=== PATIENT | female | born 1975 | race Caucasian/White ===

== ENCOUNTER → 2019-03-04 14:42 | Outpatient (CLI) | payer OTHER, SELFPAY ==
--- NOTE | 2019-03-04 14:43 | US_ITS ---
PROCEDURE: US TRANSVAGINAL CLINICAL INDICATION: dub COMPARISON: No exams were available for comparison FINDINGS: Uterus measures 6.3 x 3.4 x 3.9 centimeters. Uterus is anteverted or anteflexed. Endometrial stripe is 4.0 millimeters. Right ovary is 5.0 x 2.3 x 4.2 centimeters and contains a few anechoic foci with smooth guajardo and distal acoustic enhancement, largest is 3.3 centimeters. There is blood flow to the right ovary. Left ovary has been surgically removed. IMPRESSION: Benign-appearing prominent right ovarian cysts. Dictated by: Geraldo Stafford 03/04/2019 16:48 Electronically signed by Geraldo Stafford in [facility] 03/04/2019 16:48
--- NOTE | 2019-03-04 14:43 | MM_ITS ---
PROCEDURE: MM DIG SCREENING MAMM BI W/CAD Patient Age:43Y CLINICAL INDICATION: baseline routine screening mammogram. No hormones but no new complaints but Previous cyst aspiration and needle biopsy/breasts benign. COMPARISON: No exams were available for comparison TECHNIQUE: Standard CC and MLO images were obtained. R2 CAD reviewed. Additional nipple profile CC view right breast and left breast FINDINGS: This is a baseline study with no previous for comparison. Of minimal fibroglandular elements of throughout the breast, most evident retroareolar region no dominant or suspicious appearing mass. IMPRESSION: No areas of significant concern on this baseline mammogram . Bilateral follow-up 1 year recommended BI-RAD Category: 1 Negative FOLLOW-UP: 1YR 1 Year Follow-up (A letter has been sent to the patient regarding results of the study.) Dictated by: Quan Blair MD 03/08/2019 17:48 Electronically signed by Quan Blair MD in [facility] 03/08/2019 17:48
== END ==
PROVIDERS: PCP Family Medicine; Visit Provider Obstetrics & Gynecology
DX: Z12.31 Encounter for screening mammogram for malignant neoplasm of breast (principal); N93.8 Other specified abnormal uterine and vaginal bleeding
CPT/HCPCS: 76830; 77067

== ENCOUNTER → 2019-04-06 12:46 | Outpatient (CLI) | payer OTHER, SELFPAY ==
--- NOTE | 2019-04-06 12:47 | US_ITS ---
PROCEDURE: US TRANSVAGINAL CLINICAL INDICATION: pelvic pain Follow-up right ovarian cyst COMPARISON: US TRANSVAGINAL from 03/04/2019 FINDINGS: UTERUS: The 8 x 4 x 4 cm. Combined endometrial thickness is 4 mm. There is some fluid present in the endocervical canal. The right ovary is 5 x 3.7 cm and contains a 3.3 cm cyst. Previously this cyst was a bilobular and measured 3.4 x 3 cm with a 2nd component at 2 cm. The current lead there is a small septation along the left aspect of the cyst. The left ovary has been removed. No cul-de-sac fluid evident. IMPRESSION: 1. There is a small amount fluid in the endocervical canal. 2. Right ovarian cyst is once again noted and is not significantly changed. A 2nd right ovarian cyst previously noted is no longer apparent. Suggest continued follow-up to confirm resolution or stability Dictated by: Deric Elaine MD 04/06/2019 18:04 Electronically signed by Deric Elaine MD in [facility] 04/06/2019 18:05
== END ==
PROVIDERS: PCP Family Medicine; Visit Provider Obstetrics & Gynecology
DX: R10.2 Pelvic and perineal pain (principal)
CPT/HCPCS: 76830

== ENCOUNTER → 2019-04-12 16:19 | Outpatient (CLI) | payer OTHER, SELFPAY ==
[2019-04-14 12:20] LABS: Cancer Antigen (CA) 125 11.8 U/mL (0.0-38.1)
== END ==
PROVIDERS: Visit Provider Obstetrics & Gynecology
DX: N83.8 Other noninflammatory disorders of ovary, fallopian tube and broad ligament (principal)
CPT/HCPCS: 36415; 86316

== ENCOUNTER → 2019-05-13 16:28 | Outpatient (CLI) | payer OTHER, SELFPAY ==
[2019-05-13 16:31] LABS: Microscopic, Urine URINE MICROSCOPIC (MICROSCOPIC)
[2019-05-13 17:12] LABS: Basophils # 0.1 K/mm3 (0-0.2); Basophils % 0.5 % (0.1-2.0); Eosinophils # 0.2 K/mm3 (0.0-0.4); Eosinophils % 1.8 % (0.1-12.0); Hematocrit 43.8 % (37.0-47.0); Hemoglobin 14.2 g/dL (12.2-16.2); Lymphocytes # 3.5 K/mm3 (0.7-4.5); Lymphocytes % 31.9 % (10-50); Mean Corpuscular HGB Conc 32.5 g/dL (31.8-35.4); Mean Corpuscular Hemoglobin 29.5 pg (27.0-31.2); Mean Corpuscular Volume 90.8 fl (81-99); Mean Platelet Volume 8.3 fl (7.4-10.4); Monocytes # 0.4 K/mm3 (0.1-1.0); Monocytes % 3.9 % (1.7-9.3); Neutrophils # 6.8 K/mm3 (1.8-7.8); Platelet Count 410 K/mm3 (142-424); Red Blood Count 4.82 M/mm3 (4.20-5.40); Red Cell Distribution Width 13.1 % (11.5-17.5); White Blood Count 10.9 K/mm3 (4.8-10.8)
[2019-05-13 17:16] LABS: Appearance,Urine CLEAR (Clear); Bilirubin,Urine Negative (Negative); Blood, Urine 1+ (Negative); Color,Urine YELLOW (Yellow); Glucose,Urine (UA) Negative (Negative); Ketones,Urine Negative (Negative); Leukocyte Esterase,Urine Negative (Negative); Nitrate,Urine Negative (Negative); PH,Urine 5.5 (5.0-8.5); Protein,Urine Negative (Negative); Urobilinogen,Urine 0.2 EU/dl (0.2)
[2019-05-13 17:30] LABS: Urine Pregnancy, HCG Qual. Negative (Negative)
[2019-05-13 17:34] LABS: Bacteria,Urine Trace /lpf; Squamous Epithelial Cell,Urine Occasional #/hpf (0-5); WBC,Urine Occasional #/hpf (0-3)
[2019-05-13 21:23] LABS: Alanine Aminotransferase 24 U/L (12-78); Albumin Level 3.5 gm/dL (3.4-5.0); Albumin/Globulin Ratio 1.1 (1.1-1.8); Alkaline Phosphatase 77 U/L (46-116); Anion Gap 14.4 mEq/L (5-15); Aspartate Amino Transferase 14 U/L (15-37); Bilirubin,Total 0.5 mg/dL (0.2-1.0); Blood Urea Nitrogen 12 mg/dL (7-18); Calcium 8.9 mg/dL (8.5-10.1); Carbon Dioxide 29 mmol/L (21.0-32.0); Chloride 102 mmol/L (98-107); Creatinine,Serum 0.91 mg/dL (0.55-1.02); Estimated Glomerular Filt Rate 68 ml/min (>60); GFR (African American) 82 ML/MIN (>60); Globulin 3.3 gm/dl (1.3-3.2); Glucose 80 mg/dL (74-106); Potassium 4.4 mmoL/L (3.5-5.1); Sodium 141 mmol/L (136-145); Total Protein,Serum 6.8 gm/dL (6.4-8.2)
== END ==
PROVIDERS: Visit Provider Obstetrics & Gynecology
DX: Z01.818 Encounter for other preprocedural examination (principal); N83.201 Unspecified ovarian cyst, right side
CPT/HCPCS: 36415; 80053; 81001; 81025; 85025

== ENCOUNTER → 2020-02-02 08:23 | Outpatient (CLI) | payer OTHER, SELFPAY ==
--- NOTE | 2020-02-02 08:43 | US_ITS ---
PROCEDURE: US ABDOMEN LIMITED CLINICAL INDICATION: ABD PAIN,REFLUX COMPARISON: CT [facility] CT CHEST W/O CONTRAST from 08/22/2016 FINDINGS: PANCREAS: Unremarkable. No obvious mass or abnormal fluid collection. No ductal dilatation LIVER: No focal liver lesions demonstrated. Homogeneous echogenicity. No intrahepatic biliary ductal dilatation evident. There is appropriate direction of blood flow within a non dilated portal vein RIGHT KIDNEY: Unremarkable. Normal size and echogenicity. There is minimal ectasia of the right renal collecting system. GALLBLADDER: No gallstones, gallbladder wall thickening, pericholecystic fluid, or biliary dilatation. IMPRESSION: Minimal ectasia of the right renal collecting system otherwise negative right upper quadrant ultrasound. Dictated by: Deric Elaine MD 02/02/2020 18:04 Deric Elaine MD in [facility] 02/02/2020 18:04
== END ==
LOC: RAD 08:23
PROVIDERS: PCP Family Medicine; Visit Provider Nurse Practitioner Family
DX: R10.11 Right upper quadrant pain (principal); K21.9 Gastro-esophageal reflux disease without esophagitis
CPT/HCPCS: 76705

== ENCOUNTER → 2020-02-16 10:16 | Outpatient (CLI) | payer OTHER, SELFPAY ==
--- NOTE | 2020-02-16 10:22 | NM_ITS ---
PROCEDURE: NM HEPATOBILIARY W PHARM CLINICAL INDICATION: RUQ PAIN COMPARISON: No exams were available for comparison TECHNIQUE: DOSE: 8.2 mCi technetium Choletec and 2.5 mcg of CCK FINDINGS: Homogeneous activity is present within the hepatic parenchyma. Activity is present in the gallbladder by 10 minutes. Activity is present in the small bowel by 10 minutes. The gallbladder ejection fraction is calculated to be 15 percent. Mild pain was reported with CCK infusion.. IMPRESSION: 1. No evidence of common or cystic duct obstruction with normal times a visualization of the gallbladder and small bowel. 2. Low gallbladder ejection fraction of 15 percent. There was some pain reported with CCK infusion. Gallbladder dyskinesia is a consideration. Please correlate with clinical findings Dictated by: Deric Elaine MD 02/17/2020 11:09 Deric Elaine MD in [facility] 02/17/2020 11:09
--- NOTE | 2020-02-16 10:38 | HMH.ITSHM ---
Current Home Medications as stated by this patient Treva Lynch or community representative. []STOMACH MEDS
== END ==
LOC: RAD 10:17
PROVIDERS: PCP Family Medicine; Visit Provider Nurse Practitioner Family
DX: R10.11 Right upper quadrant pain (principal)
CPT/HCPCS: 78227; A9537; J2805

== ENCOUNTER → 2020-03-06 08:19 | Outpatient (CLI) | payer OTHER, SELFPAY ==
[2020-03-06 08:34] LABS: Basophils # 0.1 K/mm3 (0-0.2); Basophils % 0.9 % (0.1-2.0); Eosinophils # 0.2 K/mm3 (0.0-0.4); Eosinophils % 2.8 % (0.1-12.0); Hematocrit 41.7 % (37.0-47.0); Hemoglobin 14.2 g/dL (12.2-16.2); Lymphocytes # 2.8 K/mm3 (0.7-4.5); Lymphocytes % 32.2 % (10-50); Mean Corpuscular Hemoglobin 30.4 pg (27.0-31.2); Mean Corpuscular Volume 89.3 fl (81-99); Mean Platelet Volume 8.4 fl (7.4-10.4); Monocytes # 0.3 K/mm3 (0.1-1.0); Monocytes % 3.4 % (1.7-9.3); Neutrophils # 5.3 K/mm3 (1.8-7.8); Neutrophils % 60.7 % (37.0-80.0); Platelet Count 366 K/mm3 (142-424); Red Blood Count 4.67 M/mm3 (4.20-5.40); Red Cell Distribution Width 13.2 % (11.5-17.5); White Blood Count 8.7 K/mm3 (4.8-10.8)
[2020-03-06 09:23] LABS: Chloride 100 mmol/L (98-107); Potassium 3.9 mmoL/L (3.5-5.1); Sodium 136 mmol/L (136-145)
[2020-03-06 09:26] LABS: Alanine Aminotransferase 20 U/L (12-78); Albumin Level 3.9 g/dl (3.5-5.0); Albumin/Globulin Ratio 1.5 (1.1-1.8); Alkaline Phosphatase 81 U/L (38-126); Anion Gap 11.9 mEq/L (5-15); Aspartate Amino Transferase 26 U/L (14-36); Blood Urea Nitrogen 8 mg/dl (7-17); Carbon Dioxide 28 mmol/L (22.0-30.0); Estimated Glomerular Filt Rate 68 ml/min (>60); GFR (African American) 83 ML/MIN (>60); Globulin 2.6 g/dL (1.3-3.2); Total Protein,Serum 6.5 g/dl (6.3-8.2)
[2020-03-06 09:27] LABS: Calcium 9.2 mg/dl (8.4-10.2); Glucose 103 mg/dl (74-100)
[2020-03-06 10:14] LABS: Coronavirus 19 IgG Antibody Negative (Negative); Coronavirus 19 IgM Antibody Negative (Negative)
== END ==
PROVIDERS: Visit Provider Surgery
DX: Z01.89 Encounter for other specified special examinations (principal); K82.8 Other specified diseases of gallbladder
CPT/HCPCS: 36415; 80053; 85025; 86328

== ENCOUNTER 2020-03-07 09:12 | Day surgery (SDC) | payer OTHER, SELFPAY ==
[2020-03-06 14:16] VITALS: BMI 46.5
[2020-03-07] VITALS (14 sets, daily range): BP systolic 124–194; BP diastolic 77–99; PULSE 65–102; RESP 12–19; TEMP 35.9–36.6; O2SAT 93–99
[2020-03-07 09:35] LABS: Urine Pregnancy, HCG Qual. Negative (Negative)
--- NOTE | 2020-03-07 10:05 | P.PN_ITS ---
[facility] Anesthesia Checklist - Patient Identification Patient Identification: Arm Band, Verbal (Name & ) - Structural Data Admitted From: Home Planned Operative Procedure/s: Laparoscopic cholecystectomy Consent for Planned Operative Procedure(s) Verified: Yes Verified Documents: Surgical Consent, History and Physical - NPO Status Verified Time NPO: 00:00 - Chart Verification Results Verified: CBC, BMP, HCG - Additional verifications Patient : No Anesthesia Reactions: No Hx Blood Transfusions: No Blood Transfusion Reaction: No - Airway Assessment C-Spine Mobility Assessed: Yes TMJ Mobility Assessed: Yes Dentition: Good Dentition - Neurological Assessment Level of Consciousness: Awake, Alert, Appropriate, Follows Commands Hx Seizures: No Numbness or tingling in extremities: No - Anesthesia Plan Anesthesia Risk discussed: Yes Anesthesia Plan: Verified ASA Class: III Anesthesia Type: General [facility] History I have reviewed the patient's past medical history: Yes Medical History: Reports:: Gastroesophageal Reflux Disease(GERD), Hypertension Denies:: Cancer, Diabetes Mellitus Type 1, Diabetes Mellitus Type 2, Internal Pacemaker, MRSA, Seizures *Have you ever received a pneumonia vaccine?: No *Have you received a flu vaccine this season?: No Other Medical History: Reports: Hypothyroidism. Denies: Blood Transfusion Reaction Comment:: morbid obesity Anesthesia experience/problems:: None Laterality Cases: Bilateral: Tonsillectomy Other Surgeries: Yes: Dilation and Curettage. No: Pacemaker Amputation: No Fractures: No - *Social History Last grade of school completed: Some college Smoking Status: Never smoker Alcohol Intake: never Alcohol Intake Frequency:: other Substance Use Type: denies use *Occupational Status:: employed Housing: house Household Members: spouse, family *Travel in the last 8 weeks: None Family Hx:: No significant family history
--- NOTE | 2020-03-07 11:13 | HMH.OPNOTE ---
Date of procedure: 03/07/20 Pre-op Diagnosis:: Gallbladder disease Post-op Diagnosis:: Same Procedure performed:: Laparoscopic cholecystectomy Surgeon:: Arnold Tilley MD SUPERVISOR GRAPHITE:: Rashel Sultana Anesthesia: GETA Estimated blood loss (mL): 15 Clinical Note:: Patient is a pleasant 44-year-old female who resides in [facility] and is referred by [facility] for gallbladder. She works for [employer]. For several months she has had some symptoms of postprandial bloating and belching. She has developed some pain in the right upper quadrant with radiation to the epigastrium. This has become more persistent and more severe. She is now developed postprandial vomiting. She states that she is unable to tolerate any significant food intake including even saltine crackers. She underwent a gallbladder ultrasound which is negative for gallstones. She had a HIDA scan performed which revealed ejection fraction 15%. She did have some reproduction of symptoms with CCK. She has previously undergone gynecologic laparoscopic surgery with Dr. Soto Operative findings:: She has some mild fatty infiltration of the liver. Gallbladder was somewhat thickened and distended. Operative note:: Patient was taken to the operating room. She was placed in a supine position. General anesthesia was induced via endotracheal tube. Abdomen was prepped and draped in the standard surgical fashion. Subumbilical skin incision was made and dissection was carried down to the fascia. While performing abdominal wall lift Veress needle was inserted. CO2 pneumoperitoneum was achieved to 15 mmHg. 11 mm optical trocar was inserted at the umbilicus. Intraperitoneal contents were visualized. She was positioned in reverse Trendelenburg with left side down. A couple 5 mm trochars were inserted in the right upper abdomen. 10 mm trocar was inserted in the epigastrium. Liver was elevated and the gallbladder was grasped retracted anteriorly and superiorly over the dome of the liver. There was some fatty infiltration around the neck of the gallbladder. This was taken down using blunt dissection and the visceral peritoneum overlying the neck of the gallbladder was bluntly incised. Dissection was carried out the neck of the gallbladder clearly identifying and isolating the cystic duct and cystic artery. Cystic duct was isolated, multiply clipped, and sharply divided. Cystic artery was carefully coagulated with SHAMIKA ultrasonic harmonic flip and divided. Gallbladder was dissected free from the liver in a retrograde fashion using SHAMIKA ultrasonic harmonic flip. Towards the end of the dissection process there was some unavoidable spillage of bile which was suctioned free immediately and a Hemoclip was placed on the gallbladder defect. Gallbladder was placed within an Endo Catch retrieval device and removed from the peritoneal cavity via the umbilical trocar site. Gallbladder fossa and perihepatic space were thoroughly irrigated and aspirated until clear. There was good hemostasis. Trochars were removed as CO2 pneumoperitoneum was evacuated. Fascia at the umbilicus was closed with 0 Vicryl suture. Local anesthetic was infiltrated into all incisions. Skin incisions were closed with 4-0 Monocryl in a subcuticular fashion. Steri-Strips and dressings were applied. Condition: stable Disposition: PACU Specimens:: Gallbladder Complications:: None immediately apparent
--- NOTE | 2020-03-07 11:31 | HMH.ANESI ---
[facility] Anesthesia Record Part I Intake, IV Amount: 1,000 Estimated blood loss (mL): 25 Urine output (mL): 0 (NM) Blood Products used (#): none Blood Pressure: 146/88 SaO2: 96 Pulse Rate: 91 Respiratory Rate: 16 Temperature: 97.8 F Patient is:: Awake, Drowsy, Stable Stable to PACU at:: 11:20
--- NOTE | 2020-03-07 15:35 | P.PN_ITS ---
[facility] Anesthesia Record Part II Discharge Time: 11:50 Destination: Surgical Day Care (OP Surgery) PACU nurse assessment reviewed?: Yes Patient Condition:: Good Anesthesia Complications:: None Swallowing reflex intact?: Yes Cyanosis?: No Blood Pressure: 146/88 Pulse Rate: 94 Temperature: 97.8 F Mental Status: Alert & Oriented Pain level:: 3 Nausea and/or vomitting:: None Intake, IV Amount: 0
== END 2020-03-07 13:35 | disposition home or self-care (01) ==
LOC: OR 09:16
PROVIDERS: PCP Family Medicine; Visit Provider Surgery
PROC: 0FT44ZZ Resection of Gallbladder, Percutaneous Endoscopic Approach (ICD-10-PCS; CPT 47562; principal; 2020-03-07 10:45)
DX: K82.8 Other specified diseases of gallbladder (principal); K76.0 Fatty (change of) liver, not elsewhere classified; I10 Essential (primary) hypertension; K21.9 Gastro-esophageal reflux disease without esophagitis; E03.9 Hypothyroidism, unspecified; Z90.89 Acquired absence of other organs
CPT/HCPCS: 47562; 81025; 96374; J2405

== ENCOUNTER → 2020-05-01 16:27 | Outpatient (CLI) | payer OTHER, SELFPAY ==
[2020-05-01 21:18] LABS: Thyroid Stimulating Hormone 1.54 uIU/mL (0.465-4.68)
[2020-05-03 10:22] LABS: FSH 4.1 mIU/mL (.)
== END ==
PROVIDERS: Visit Provider Obstetrics & Gynecology
DX: N91.2 Amenorrhea, unspecified (principal)
CPT/HCPCS: 36415; 83001; 84443

== ENCOUNTER → 2020-05-10 14:52 | Outpatient (CLI) | payer OTHER, SELFPAY ==
--- NOTE | 2020-05-10 14:52 | US_ITS ---
PROCEDURE: US TRANSVAGINAL CLINICAL INDICATION: Abnormal menses COMPARISON: US US TRANSVAGINAL from 04/06/2019 FINDINGS: UTERUS: 7cm x 4cmx 4cm with a combined endometrial thickness of 9.7mm LEFT OVARY: Surgically removed RIGHT OVARY: [id number] with a volume of 32.5ml. There is a complex right ovarian cyst measuring up to 3 by 3.5 cm with some thin internal septations. Left ovary has been surgically removed. IMPRESSION: Complex right ovarian cyst. Suggest follow-up to confirm resolution or stability. Left ovary has been surgically removed. Dictated by: Deric Elaine MD 05/12/2020 17:18 Deric Elaine MD in [place] 05/12/2020 17:18
== END ==
PROVIDERS: PCP Family Medicine; Visit Provider Obstetrics & Gynecology
DX: N91.2 Amenorrhea, unspecified (principal)
CPT/HCPCS: 76830

== ENCOUNTER → 2020-06-06 15:49 | Outpatient (CLI) | payer OTHER, SELFPAY ==
[2020-06-06 16:49] LABS: Basophils # 0.1 K/mm3 (0-0.2); Basophils % 0.6 % (0.1-2.0); Eosinophils # 0.2 K/mm3 (0.0-0.4); Hemoglobin 15.1 g/dL (12.2-16.2); Lymphocytes # 3.3 K/mm3 (0.7-4.5); Lymphocytes % 30.9 % (10-50); Mean Corpuscular HGB Conc 33.6 g/dL (31.8-35.4); Mean Corpuscular Hemoglobin 29.7 pg (27.0-31.2); Mean Corpuscular Volume 88.2 fl (81-99); Mean Platelet Volume 8.5 fl (7.4-10.4); Monocytes # 0.4 K/mm3 (0.1-1.0); Monocytes % 3.3 % (1.7-9.3); Neutrophils # 6.7 K/mm3 (1.8-7.8); Neutrophils % 63.1 % (37.0-80.0); Platelet Count 444 K/mm3 (142-424); Red Cell Distribution Width 13.5 % (11.5-17.5); White Blood Count 10.7 K/mm3 (4.8-10.8)
[2020-06-06 17:30] LABS: Chloride 100 mmol/L (98-107); Sodium 138 mmol/L (136-145)
[2020-06-06 17:31] LABS: Potassium 4.6 mmoL/L (3.5-5.1)
[2020-06-06 17:33] LABS: Alanine Aminotransferase 23 U/L (12-78); Albumin Level 4.3 g/dl (3.5-5.0); Albumin/Globulin Ratio 1.5 (1.1-1.8); Alkaline Phosphatase 86 U/L (38-126); Anion Gap 13.6 mEq/L (5-15); Aspartate Amino Transferase 31 U/L (14-36); Bilirubin,Total 0.8 mg/dl (0.2-1.3); Blood Urea Nitrogen 16 mg/dl (7-17); Calcium 9.3 mg/dl (8.4-10.2); Carbon Dioxide 29 mmol/L (22.0-30.0); Estimated Glomerular Filt Rate 78 ml/min (>60); GFR (African American) 94 ML/MIN (>60); Globulin 2.8 g/dL (1.3-3.2); Glucose 126 mg/dl (74-100); Total Protein,Serum 7.1 g/dl (6.3-8.2)
[2020-06-06 18:10] LABS: Coronavirus 19 IgG Antibody Positive (Negative); Coronavirus 19 IgM Antibody Negative (Negative)
[2020-06-06 18:21] LABS: Barbiturates Screen,Urine Negative ng/ml (<200)
[2020-06-06 18:22] LABS: Amphetamine/Metha Screen,Urine Negative ng/ml (<1000); Benzodiazepines Screen,Urine Negative ng/ml (<200)
[2020-06-06 18:23] LABS: Cannabinoid Screen,Urine Negative ng/ml (<50); Cocaine Screen,Urine Negative ng/ml (<300)
[2020-06-06 18:24] LABS: Methadone Screen,Urine Negative ng/ml (<300)
[2020-06-06 18:25] LABS: Opiate Screen,Urine Negative ng/ml (<300); Phencyclidine Screen,Urine Negative ng/ml (<25)
[2020-06-09 10:12] LABS: HCG,Quantitative < 2 mIU/ml (0-5.42)
== END ==
PROVIDERS: PCP Family Medicine; Visit Provider Obstetrics & Gynecology
DX: Z01.818 Encounter for other preprocedural examination (principal); Z03.818 Encounter for observation for suspected exposure to other biological agents ruled out; Z86.19 Personal history of other infectious and parasitic diseases; N91.2 Amenorrhea, unspecified; R93.89 Abnormal findings on diagnostic imaging of other specified body structures; E66.01 Morbid (severe) obesity due to excess calories; Z68.42 Body mass index [BMI] 45.0-49.9, adult; N83.201 Unspecified ovarian cyst, right side
CPT/HCPCS: 36415; 80053; 80305; 84702; 85025; 86328

== ENCOUNTER 2020-06-09 06:39 | Day surgery (SDC) | payer OTHER, SELFPAY ==
[2020-06-06 09:00] VITALS: BMI 44.6
[2020-06-09] VITALS (12 sets, daily range): BP systolic 145–187; BP diastolic 80–97; PULSE 69–98; RESP 18–20; TEMP 36.6–43; O2SAT 95–98
--- NOTE | 2020-06-09 11:00 | P.PN_ITS ---
[facility] Anesthesia Checklist - Patient Identification Patient Identification: Arm Band, Verbal (Name & ) - Structural Data Admitted From: Home Planned Operative Procedure/s: d and c Consent for Planned Operative Procedure(s) Verified: Yes Verified Documents: History and Physical - NPO Status Verified Time NPO: 00:00 - Chart Verification Results Verified: CBC, BMP - Additional verifications Patient : No Anesthesia Reactions: No Hx Blood Transfusions: No Blood Transfusion Reaction: No Cephalosporin Allergy: No Previous Colonoscopy: No - Cardiovascular Assessment Heart Sounds: S1 & S2 Pulse Strength: Baseline Pulse Rhythm: Regular Peripheral Edema: No - Airway Assessment C-Spine Mobility Assessed: Yes TMJ Mobility Assessed: Yes Dentition: Good Dentition - Neurological Assessment Level of Consciousness: Awake, Alert, Appropriate Hx Seizures: No Numbness or tingling in extremities: No - Anesthesia Plan Anesthesia Risk discussed: Yes Anesthesia Plan: Verified ASA Class: II Anesthesia Type: General [facility] History I have reviewed the patient's past medical history: Yes Medical History: Reports:: Gastroesophageal Reflux Disease(GERD), Hypertension Denies:: Cancer, Diabetes Mellitus Type 1, Diabetes Mellitus Type 2, Internal Pacemaker, MRSA, Seizures *Have you ever received a pneumonia vaccine?: No *Have you received a flu vaccine this season?: No Other Medical History: Reports: Hypothyroidism. Denies: Blood Transfusion Reaction Anesthesia experience/problems:: none Laterality Cases: Bilateral: Tonsillectomy Other Surgeries: Yes: Cholecystectomy, Dilation and Curettage. No: Pacemaker Amputation: No Fractures: No - *Social History Last grade of school completed: Some college Smoking Status: Never smoker Alcohol Intake: never Alcohol Intake Frequency:: other Substance Use Type: denies use *Occupational Status:: employed Housing: house Household Members: spouse, family *Travel in the last 8 weeks: None Family Hx:: No significant family history
--- NOTE | 2020-06-09 11:01 | P.PN_ITS ---
[facility] Anesthesia Record Part I Intake, IV Amount: 850 Estimated blood loss (mL): 5 Urine output (mL): 0 Blood Products used (#): none Blood Pressure: 162/95 SaO2: 97 Pulse Rate: 81 Respiratory Rate: 18 Temperature: 97.9 F Patient is:: Drowsy, Stable Stable to PACU at:: 11:00
--- NOTE | 2020-06-09 11:01 | P.OP_ITS ---
Date of procedure: 06/09/20 Pre-op Diagnosis:: 1. Amenorrhea 2. Thickened endometrium 3. Obesity Post-op Diagnosis:: same Procedure performed:: Myosure D&C Hysteroscopy Surgeon:: Jennifer Marc MD PHYSICAL THERAPY AIDES TEACHER:: Ralf Costello Anesthesia: GETA Estimated blood loss (mL): 5 Operative findings:: no visible lesions endometrial cavity Operative note:: The patient was taken to the OR and general anesthesia administered without difficulty. She was prepped/draped in lithotomy position. The cervix was dilated and hysteroscopic evaluation performed. No lesions were visualized within the endometrial cavity. The Myosure was used to sample the endometrial tissue throughout the cavity. Once this was completed, all instruments were removed from her uterus and vagina. She was taken out of lithotomy position, awakened from anesthesia and taken to the PACU in stable condition. All sponge, needle & instrument counts correct. EBL 5cc. Condition: stable Disposition: PACU Specimens:: endometrial Complications:: none
== END 2020-06-09 12:35 ==
LOC: OR 06:42
PROVIDERS: PCP Family Medicine; Visit Provider Obstetrics & Gynecology
PROC: (CPT 58563; principal; 2020-06-09 08:30)
DX: N91.2 Amenorrhea, unspecified (principal); N83.201 Unspecified ovarian cyst, right side; E66.9 Obesity, unspecified; K21.9 Gastro-esophageal reflux disease without esophagitis; I10 Essential (primary) hypertension; E03.9 Hypothyroidism, unspecified; Z68.41 Body mass index [BMI] 40.0-44.9, adult
CPT/HCPCS: 58563; 96374; J2405

== ENCOUNTER → 2020-08-10 12:51 | Outpatient (CLI) | payer OTHER, SELFPAY ==
--- NOTE | 2020-08-10 12:51 | US_ITS ---
PROCEDURE: US TRANSVAGINAL CLINICAL INDICATION: f/u on Right Ovarian Cyst Pelvic pressure, recent endometrial polyp removal COMPARISON: US US TRANSVAGINAL from 05/10/2020 FINDINGS: UTERUS: 8cm x 4cmx 4cm with a combined endometrial thickness of 8.8mm LEFT OVARY: xx with a volume of . RIGHT OVARY: [id number] with a volume of 37.7ml. The uterus is retroverted. The left ovary is surgically absent. Endometrial stripe is at 9 mm. There is a 3.7 x 3.5 cm right ovarian cyst not significantly changed. IMPRESSION: Overall no significant change in the right ovarian cyst with retroverted uterus Dictated by: Deric Elaine MD 08/10/2020 17:39 Deric Elaine MD in [place] 08/10/2020 17:39
== END ==
PROVIDERS: PCP Family Medicine; Visit Provider Obstetrics & Gynecology
DX: N83.201 Unspecified ovarian cyst, right side (principal)
CPT/HCPCS: 76830

== ENCOUNTER → 2020-09-25 07:32 | Outpatient (CLI) | payer BC, SELFPAY ==
[2020-09-25 08:19] LABS: Basophils # 0.1 K/mm3 (0-0.2); Basophils % 0.6 % (0.1-2.0); Eosinophils # 0.2 K/mm3 (0.0-0.4); Eosinophils % 1.9 % (0.1-12.0); Hemoglobin 14.4 g/dL (12.2-16.2); Lymphocytes # 3.4 K/mm3 (0.7-4.5); Lymphocytes % 32.4 % (10-50); Mean Corpuscular HGB Conc 32.9 g/dL (31.8-35.4); Mean Corpuscular Volume 88.3 fl (81-99); Monocytes # 0.4 K/mm3 (0.1-1.0); Monocytes % 4.1 % (1.7-9.3); Neutrophils # 6.4 K/mm3 (1.8-7.8); Platelet Count 409 K/mm3 (142-424); Red Blood Count 4.98 M/mm3 (4.20-5.40); Red Cell Distribution Width 13.4 % (11.5-17.5); White Blood Count 10.5 K/mm3 (4.8-10.8)
[2020-09-25 08:48] LABS: Chloride 101 mmol/L (98-107); Sodium 136 mmol/L (136-145)
[2020-09-25 08:49] LABS: Potassium 4.2 mmoL/L (3.5-5.1)
[2020-09-25 08:51] LABS: Alanine Aminotransferase 23 U/L (12-78); Albumin Level 4.3 g/dl (3.5-5.0); Albumin/Globulin Ratio 1.7 (1.1-1.8); Alkaline Phosphatase 78 U/L (38-126); Anion Gap 13.2 mEq/L (5-15); Aspartate Amino Transferase 28 U/L (14-36); Bilirubin,Total 0.9 mg/dl (0.2-1.3); Blood Urea Nitrogen 12 mg/dl (7-17); Calcium 9.3 mg/dl (8.4-10.2); Carbon Dioxide 26 mmol/L (22.0-30.0); Estimated Glomerular Filt Rate 78 ml/min (>60); GFR (African American) 94 ML/MIN (>60); Globulin 2.5 g/dL (1.3-3.2); Glucose 100 mg/dl (74-100); HCG Qualitative, Serum Negative (Negative); Total Protein,Serum 6.8 g/dl (6.3-8.2)
== END ==
PROVIDERS: PCP Family Medicine; Visit Provider Obstetrics & Gynecology
DX: Z01.812 Encounter for preprocedural laboratory examination (principal); Z20.822 Contact with and (suspected) exposure to COVID-19; U07.1 COVID-19; R10.2 Pelvic and perineal pain; R93.89 Abnormal findings on diagnostic imaging of other specified body structures
CPT/HCPCS: 36415; 80053; 84703; 85025; U0003

== ENCOUNTER → 2020-10-09 07:59 | Outpatient (CLI) | payer BC, SELFPAY | PROVIDERS: PCP Family Medicine; Visit Provider Obstetrics & Gynecology | DX: Z20.822 Contact with and (suspected) exposure to COVID-19 (principal) | CPT/HCPCS: U0003 ==

== ENCOUNTER → 2020-10-22 08:24 | Outpatient (CLI) | payer BC, SELFPAY ==
[2020-10-22 09:18] LABS: Basophils # 0.1 K/mm3 (0-0.2); Basophils % 0.8 % (0.1-2.0); Eosinophils # 0.1 K/mm3 (0.0-0.4); Eosinophils % 1.4 % (0.1-12.0); Hematocrit 44.6 % (37.0-47.0); Lymphocytes # 3.1 K/mm3 (0.7-4.5); Lymphocytes % 37.5 % (10-50); Mean Corpuscular HGB Conc 33.7 g/dL (31.8-35.4); Mean Corpuscular Hemoglobin 29.3 pg (27.0-31.2); Mean Corpuscular Volume 86.8 fl (81-99); Mean Platelet Volume 8.3 fl (7.4-10.4); Monocytes # 0.3 K/mm3 (0.1-1.0); Monocytes % 4.1 % (1.7-9.3); Neutrophils # 4.6 K/mm3 (1.8-7.8); Neutrophils % 56.2 % (37.0-80.0); Platelet Count 403 K/mm3 (142-424); Red Blood Count 5.13 M/mm3 (4.20-5.40); Red Cell Distribution Width 13.1 % (11.5-17.5); White Blood Count 8.2 K/mm3 (4.8-10.8)
[2020-10-22 09:22] LABS: HCG Qualitative, Serum Negative (Negative)
[2020-10-22 09:28] LABS: Chloride 101 mmol/L (98-107); Sodium 136 mmol/L (136-145)
[2020-10-22 09:31] LABS: Alanine Aminotransferase 20 U/L (12-78); Albumin Level 4.4 g/dl (3.5-5.0); Albumin/Globulin Ratio 1.6 (1.1-1.8); Alkaline Phosphatase 75 U/L (38-126); Aspartate Amino Transferase 31 U/L (14-36); Bilirubin,Total 1.4 mg/dl (0.2-1.3); Blood Urea Nitrogen 15 mg/dl (7-17); Carbon Dioxide 26 mmol/L (22.0-30.0); Estimated Glomerular Filt Rate 78 ml/min (>60); GFR (African American) 94 ML/MIN (>60); Globulin 2.8 g/dL (1.3-3.2); Total Protein,Serum 7.2 g/dl (6.3-8.2)
[2020-10-22 09:32] LABS: Calcium 8.9 mg/dl (8.4-10.2); Glucose 105 mg/dl (74-100)
== END ==
PROVIDERS: PCP Family Medicine; Visit Provider Obstetrics & Gynecology
DX: Z01.812 Encounter for preprocedural laboratory examination (principal); Z11.52 Encounter for screening for COVID-19; R10.2 Pelvic and perineal pain
CPT/HCPCS: 36415; 80053; 84703; 85025; U0003

== ENCOUNTER 2020-10-24 06:32 | Inpatient (IN) | payer OTHER, SELFPAY ==
[2020-09-25 11:35] VITALS: BMI 44.6
[2020-10-18 14:03] VITALS: BMI 44.6
[2020-10-24] VITALS (26 sets, daily range): BP systolic 86–197; BP diastolic 72–101; PULSE 70–102; RESP 12–18; TEMP 36.3–42.7; O2SAT 90–100
--- NOTE | 2020-10-24 07:39 | P.PN_ITS ---
[facility] Anesthesia Checklist - Patient Identification Patient Identification: Arm Band - Structural Data Admitted From: Home Planned Operative Procedure/s: SOPHIE and RSO Consent for Planned Operative Procedure(s) Verified: Yes - NPO Status Verified Time NPO: 00:00 - Additional verifications Anesthesia Reactions: No Hx Blood Transfusions: No Blood Transfusion Reaction: No - Airway Assessment C-Spine Mobility Assessed: Yes TMJ Mobility Assessed: Yes Dentition: Good Dentition - Neurological Assessment Level of Consciousness: Awake Hx Seizures: No Numbness or tingling in extremities: No - Anesthesia Plan Anesthesia Risk discussed: Yes Anesthesia Plan: Verified ASA Class: II Anesthesia Type: General [facility] History I have reviewed the patient's past medical history: Yes Medical History: Reports:: Gastroesophageal Reflux Disease(GERD), Hypertension Denies:: Cancer, Diabetes Mellitus Type 1, Diabetes Mellitus Type 2, Internal Pacemaker, MRSA, Seizures *Have you ever received a pneumonia vaccine?: No *Have you received a flu vaccine this season?: No Other Medical History: Reports: Hypothyroidism. Denies: Blood Transfusion Reaction Anesthesia experience/problems:: None Laterality Cases: Bilateral: Tonsillectomy Other Surgeries: Yes: Cholecystectomy, Dilation and Curettage. No: Pacemaker Amputation: No Fractures: No - *Social History Last grade of school completed: Some college Smoking Status: Never smoker Alcohol Intake: never Alcohol Intake Frequency:: other Substance Use Type: denies use *Occupational Status:: employed Housing: house Household Members: spouse *Travel in the last 8 weeks: None Family Hx:: No significant family history
--- NOTE | 2020-10-24 08:14 | HMH.HP ---
*Admission Date: 10/24/20 *Chief complaint: pelvic pain, dub *History of present illness: 45 yo with pelvic pain, amenorrhea, DUB Patient has history of excessive menstruation and DUB leading up to may 2019, followed by no menstrual periods in almost 1 year, with no medical or surgical treatments to explain amenorrhea No significant vasomotor symptoms but she assumed she was in menopause FSH 4.1 and pelvic ultrasound showed endometrial stripe measurement 9.7mm Uterus measured [id number] D&C Hysteroscopy was performed on 06/09/20 with benign pathology Following hysteroscopic evaluation, she has had periods of intermittent dub, most recently bleeding for 20 days and requiring medical management with provera She is concerned about increased risk for endometrial hyperplasia with BMI 47 and unexplained amenorrhea She has elected definitive surgical management with hysterectomy She also has continued pelvic pain and would like right ovary removed at time of hysterectomy (previous LSO) Hysterectomy planned as SOPHIE in context of previous CS [facility] History I have reviewed the patient's past medical history: Yes Medical History: Reports:: Gastroesophageal Reflux Disease(GERD), Hypertension Denies:: Cancer, Diabetes Mellitus Type 1, Diabetes Mellitus Type 2, Internal Pacemaker, MRSA, Seizures *Have you ever received a pneumonia vaccine?: No *Have you received a flu vaccine this season?: No Other Medical History: Reports: Hypothyroidism. Denies: Blood Transfusion Reaction Anesthesia experience/problems:: None Laterality Cases: Bilateral: Tonsillectomy Other Surgeries: Yes: Cholecystectomy, Dilation and Curettage. No: Pacemaker Amputation: No Fractures: No - *Social History Last grade of school completed: Some college Smoking Status: Never smoker Alcohol Intake: never Alcohol Intake Frequency:: other Substance Use Type: denies use *Occupational Status:: employed Housing: house Household Members: spouse *Travel in the last 8 weeks: None Family Hx:: No significant family history Review of Systems - Review of Systems Review of systems:: pertinent systems reviewed and negative unless documented below - Constitutional Denies chills, Denies fever(s) - *Respiratory Denies cough - *Genitourinary Reports abnormal vaginal bleeding, Reports pelvic pain Meds Home Medications Medication Instructions Recorded Confirmed Type No Known Home Medications 10/24/20 10/24/20 History Allergies Allergy/AdvReac Type Severity Reaction Status Date / Time No Known Allergies Allergy Verified 10/18/20 13:42 Exam Vital signs and Labs for Last 24 Hours: Temp Pulse Resp BP Pulse Ox 97.9 F 102 H 18 197/101 H 100 10/24/20 06:49 10/24/20 06:49 10/24/20 06:49 10/24/20 06:49 10/24/20 06:49 - Constitutional no acute distress - *Routine HEENT Exam Head: Present: normocephalic Eye: Absent: conjunctival icterus, scleral injection ENT: Present: mucous membranes moist - *Routine Neck Exam Present: supple. Absent: lymphadenopathy - Routine Chest/Breast/Axilla Exam Chest wall: Absent: tenderness - *Routine Respiratory Exam Present: CTA bilaterally. Absent: respiratory distress - *Routine Cardiovascular Exam Present: RRR - *Routine Abdominal Exam Present: soft, normoactive bowel sounds. Absent: tenderness - *Routine Rectal Exam Rectal:: deferred - *Routine Genitalia Exam Genitalia:: normal female - *Routine Extremities Exam Absent: cyanosis, clubbing, edema - Routine Back/Spine/Pelvis Exam Back/Spine: Absent: CVA tenderness - *Routine Skin Exam Present: dry, warm. Absent: rash - *Routine Neurological Exam Present: alert, oriented X3 - Routine Psychiatric Exam Present: normal affect Assessment and Plan (1) DUB (dysfunctional uterine bleeding) Status: Acute Category: Medical Code(s): N93.8 - Other specified abnormal uterine and vaginal bleeding (2) Pelvic pain Status: Acute Category
--- NOTE | 2020-10-24 11:11 | P.PN_ITS ---
[facility] Anesthesia Record Part I Intake, IV Amount: 1,500 Estimated blood loss (mL): 200 Urine output (mL): 250 Blood Pressure: 122/76 SaO2: 90 Pulse Rate: 91 Respiratory Rate: 12 Temperature: 97.5 F Patient is:: Awake, Stable Stable to PACU at:: 11:05
--- NOTE | 2020-10-24 11:56 | HMH.OPNOTE ---
Date of procedure: 10/24/20 Pre-op Diagnosis:: 1. DUB 2. Thickened endometrium 3. Obesity 4. Pelvic pain 5. Previous 6. Previous LSO Post-op Diagnosis:: same Procedure performed:: Total abdominal hysterectomy Right salpingo-oophorectomy Surgeon:: Jennifer Marc MD Data Modeling Specialist(s):: Isha Kruse DIESEL CRANE OPERATOR:: Collin Vandana Anesthesia: GETA Estimated blood loss (mL): 200 Operative findings:: grossly normal appearing uterus, fallopian tube and right ovary surgically absent left fallopian tube and ovary Operative note:: The patient was taken to the operating room and general anesthesia was administered without difficulty. She was prepped and draped in the supine position. A Pfannenstiel skin incision was made approximately 2 cm above the pubic symphysis with a scalpel and carried down to the underlying layer of fascia. The fascia was incised in the midline and extended laterally sharply. The rectus muscles were sharply dissected off the fascia and in the midline. The peritoneum was turned and sharply, with good visualization of the underlying structures. The peritoneal incision was extended bluntly. A survey of the patient's pelvis and abdomen revealed grossly normal uterus, right fallopian tube and ovary. At this time, the patient was placed in Trendelenburg and a Lauren retractor was placed in the abdomen; the bowel was packed with moist laparotomy sponges. A double tooth tenaculum was placed on the uterine fundus and the uterus was elevated out of the pelvis. No fibroids or other visible uterine lesions were noted. The round ligaments were identified and transected and suture-ligated. The anterior lip of the broad ligament was dissected medially on both sides and the bladder flap was created digitally. The posterior leaf of the broad ligament was dissected until the ureters were able to be identified on either side and noted to be free of the forthcoming adnexal pedicles. Infundibulopelvic ligaments were doubly clamped transected and suture ligated on either side, with excellent hemostasis noted. The right fallopian tube and ovary were clamped transected and suture ligated and the specimens were set aside for pathology. The uterine arteries were skeletonized on either side, and were clamped, transected and suture ligated with excellent hemostasis. The bladder flap was further bluntly dissected off the lower uterine segment with excellent hemostasis and without injury to the bladder. The cardinal and uterosacral ligaments were clamped transected and suture ligated on both sides until the vaginal mucosa was entered. The vaginal incision was extended circumferentially with the Jorganson scissors; the uterus and cervix were removed abdominally and sent for pathology, along with the fallopian tubes. The vaginal cuff angles were closed 0 Vicryl [id number] sutures and were transfixed to the ipsilateral cardinal and uterosacral ligaments. The remainder of the vaginal cuff was closed with 0 Vicryl interrupted sutures. The pelvis was copiously irrigated with a solution of sterile water. The cuff was hemostatic. All pedicles were reexamined and remained hemostatic. All instruments were removed from the patient's abdomen. The peritoneum was closed with 2-0 Vicryl in a running fashion. The fascia was closed with 0 Vicryl in a running fashion. The subcutaneous fat was closed with 2-0 vicryl in an interrupted fashion. The skin was closed with 2-0 Stratafix. The patient tolerated the procedure well; sponge/lap/needle and instrument counts were correct ?2. She was taken to the recovery room awake in stable condition. Estimated blood loss: 200 cc. Condition: stable Disposition: PACU Specimens:: uterus, cervix, right ovary and fallopian tube Complications:: none
[2020-10-24 13:53] LABS: Microscopic,Cath URINE MICROSCOPIC (MICROSCOPIC)
[2020-10-24 13:55] LABS: Appearance,Urine/Cath CLEAR (Clear); Bilirubin,Cath Negative (Negative); Blood, Urine/Cath Negative (Negative); Color,Urine/Cath YELLOW (Yellow); Glucose,Urine/Cath (UA) Negative (Negative); Ketones,Urine/Cath Negative (Negative); Leukocyte Esterase,Cath Negative (Negative); Nitrate,Cath Negative (Negative); Protein,Urine/Cath Negative (Negative); Specific Gravity, Urine/Cath 1.025 (1.005-1.030); Urobilinogen,Cath 0.2 EU/dl (0.2)
[2020-10-24 14:00] LABS: RBC,Urine/Cath Occasional # /hpf (0-3)
[2020-10-24 14:01] LABS: Squamous Epithelial Ur./Cath Occasional #/hpf (0-5)
--- NOTE | 2020-10-24 17:00 | PC.NURSE ---
Spears cath removed at this time. Tolerated well. Pt assisted with ambulating in room and given abdominal pillow to splint with. Partial bed linen change, room straightened and trash emptied.
--- NOTE | 2020-10-24 17:18 | PC.NURSE ---
LTV incision remains CDI with original surgical dressing in place.
--- NOTE | 2020-10-24 18:09 | PC.NURSE ---
Sitting up in rocking chair at this time. at bs.
--- NOTE | 2020-10-24 18:59 | PC.NURSE ---
Report given to MICA Eason.
--- NOTE | 2020-10-24 21:30 | PC.NURSE ---
pt continues to rate pain 7/10 on pain scale. abdomen is soft and nontender, pt only complains of pain at incision site, dressing is intact with only minimal drainage noted. will contact md with further orders at this time, see provider notification
[2020-10-24 22:07] LABS: Hematocrit 39.7 % (37.0-47.0); Hemoglobin 13.2 g/dL (12.2-16.2)
--- NOTE | 2020-10-24 22:15 | PC.NURSE ---
pt was made aware of h&H results and asked if she would like to try new medication ordered pt states i want to wait until the other one is due and take the new medication at that time pt continues to rate pain 7/10 and appears uncomfortable but will continue to monitor at this time
[2020-10-25 04:38] VITALS: BP 158/74; PULSE 74; RESP 18; TEMP 36.8; O2SAT 97
--- NOTE | 2020-10-25 04:39 | PC.NURSE ---
pt has rested off and on throughout shift, pain has been managed with prn dilaudid, pt bp is currently elevated slightly, pt states she is anxious due to being in hospital pt denies headache or dizziness at this time, lungs remain clear, heart regular, bs x 4 quads and pt tolerating diet, abdomen is soft slightly distended pt denies passing any flatus and denies any bms this shift, good urine output, dressing to low transverse incision remains unchanged from previous assessment with only small amount of drainage noted. call light within reach, significant other at bedside will continue to monitor at this time
[2020-10-25 06:45] LABS: Hematocrit 36.5 % (37.0-47.0); Hemoglobin 11.9 g/dL (12.2-16.2)
[2020-10-25 06:48] LABS: Anion Gap 7.9 mEq/L (5-15); Blood Urea Nitrogen 7 mg/dl (7-17); Calcium 8.1 mg/dl (8.4-10.2); Carbon Dioxide 28 mmol/L (22.0-30.0); Chloride 103 mmol/L (98-107); Creatinine Clearance Estimated 77 mL/min (50-200); Estimated Glomerular Filt Rate 78 ml/min (>60); GFR (African American) 94 ML/MIN (>60); Glucose 104 mg/dl (74-100); Potassium 3.9 mmoL/L (3.5-5.1); Sodium 135 mmol/L (136-145)
--- NOTE | 2020-10-25 07:01 | PC.NURSE ---
report given to Paulo Koch RN
[2020-10-25 08:00] VITALS: BP 123/69; PULSE 78; RESP 18; TEMP 37.1; O2SAT 99
[2020-10-25 09:00] VITALS: O2SAT 99
--- NOTE | 2020-10-25 09:05 | PC.NURSE ---
OFFERED PT ASSITANCE WITH SHOWERING, DECLINES AT THIS TIME
--- NOTE | 2020-10-25 14:48 | PC.NURSE ---
DR. RAMIREZ AT BEDSIDE FOR ASSESSMENT
--- NOTE | 2020-10-25 15:06 | HMH.ACPN2 ---
Internal Medicine - PN: Subj *Date: 10/25/20 *Time: 15:06 Interval history: POD #1 SOPHIE/RSO pain control difficulty last night now improved with switch from oxycodone to dilaudid tolerating po, ambulating and voiding without difficulty Exam Vital signs and Labs for Last 24 Hours: Temp Pulse Resp BP Pulse Ox 98.7 F 78 18 123/69 99 10/25/20 08:00 10/25/20 08:00 10/25/20 08:00 10/25/20 08:00 10/25/20 09:00 Laboratory Results - last 24 hr 10/24/20 22:00: Hgb 13.2, Hct 39.7 10/25/20 06:15: Hgb 11.9 L, Hct 36.5 L 10/25/20 06:15: Sodium 135 L, Potassium 3.9, Chloride 103, Carbon Dioxide 28, Anion Gap 7.9, BUN 7 D, Creatinine 0.80, Estimated Creat Clear 77, Estimated GFR 78, Est GFR ( Amer) 94, Glucose 104 H, Calcium 8.1 L I & O for Last 24 hours: Intake & Output 10/23/20 10/24/20 10/25/20 10/26/20 11:59 11:59 11:59 11:59 Intake Total 1560 / 1560 Output Total 1800 / 1800 Balance 1560 / 1560 -1800 / -1800 Narrative: CONSTITUTIONAL: no acute distress HEENT: mucous membranes moist PULMONARY: breathing unlabored without audible wheezes CV: no tachycardia or visible JVD; normal LE peripheral pulses ABD: soft, ND; appropriately tender but no rebound/guarding SKIN: incision well approximated with no drainage, erythema or induration EXT: no edema LEs NEURO: alert/oriented, no altered mental status PSYCH: appropriate mood and demeanor without anxiety/depression Assessment and Plan (1) DUB (dysfunctional uterine bleeding) Status: Acute Category: Medical Code(s): N93.8 - Other specified abnormal uterine and vaginal bleeding (2) Pelvic pain Status: Acute Category: Medical Code(s): R10.2 - Pelvic and perineal pain (3) Amenorrhea Status: Acute Category: Medical Code(s): N91.2 - Amenorrhea, unspecified (4) Thickened endometrium Status: Acute Category: Medical Code(s): R93.89 - Abnormal findings on diagnostic imaging of other specified body structures (5) Morbid obesity with BMI of 45.0-49.9, adult Status: Acute Category: Medical Code(s): E66.01 - Morbid (severe) obesity due to excess calories; Z68.42 - Body mass index [BMI] 45.0-49.9, adult (6) Previous section Status: Acute Category: Surgical Code(s): Z98.891 - History of uterine scar from previous surgery (7) History of oophorectomy Problem details: Left Status: Acute Category: Surgical - Assessment and plan all Dx Assessment and Plan for all problems:: routine postop care possible discharge home tomorrow am
[2020-10-25 16:00] VITALS: BP 145/77; PULSE 82; RESP 18; TEMP 37.1; O2SAT 100
--- NOTE | 2020-10-25 17:00 | PC.NURSE ---
PT A&O X 4, PLEASANT. PT HAS RESTED WELL THIS SHIFT, PAIN CONTROLLED WITH PRN DILAUDID. VITAL SIGNS STABLE, AFEBRILE. HEART RATE REGULAR, NO EDEMA. LUNGS CTAB. ABD SOFT, LTV INCISION COVERED WITH T&T. SEROSANG DRAINAGE NOTED, UNCHANGED FROM AM ASSESSMENT. BOWEL SOUNDS ACTIVE X 4 QUADS. DENIES FLATUS. VOIDING WITHOUT DIFFICULTY. AMBULATES WITHOUT ASSISTANCE. ENCOURAGED PT TO SHOWER. DECLINES AT THIS TIME. IV PATENT. PT WITHOUT NEEDS AT THIS TIME. CALL LIGHT WITHIN REACH. WILL CONTINUE TO MONITOR
[2020-10-25 19:42] VITALS: BP 141/77; PULSE 83; RESP 20; TEMP 37.2; O2SAT 100
[2020-10-25 20:00] VITALS: O2SAT 100
[2020-10-26 04:00] VITALS: BP 140/79; PULSE 87; RESP 18; TEMP 36.9; O2SAT 98
--- NOTE | 2020-10-26 04:14 | PC.NURSE ---
PATIENT HAS RESTED WELL THIS SHIFT. PAIN WELL CONTROLLED WITH PRN MEDICATION. PATIENT IS A&O X4 AND AMBULATES INDEPENDENTLY. VITALS HAVE REMAINED STABLE AND PT IS AFEBRILE. SURGICAL DRESSING UNCHANGED FROM PREVIOUS ASSESSMENT. PATIENT DECLINED A SHOWER, SO I INFORMED HER THAT I WOULD LIKE TO CHANGE THE DRESSING THIS AM, PT AGREEABLE. CALL COUGHLIN IN REACH. IV FLUSHED AND REMAINS PATENT IN RIGHT FOREARM. PATIENT TOLERATING REGULAR DIET AND HAS HAD ADEQUATE OUTPUT. C/O GAS PAIN AND GIVEN PRN MEDICATION.
--- NOTE | 2020-10-26 04:45 | PC.NURSE ---
low transverse incision cleaned at this time and dressing removed. no change to drainage on dressing from previous assessment.incision cleaned with 1/2 strength peroxide and sterile water. incision left open to air. patient tolerated well
--- NOTE | 2020-10-26 07:36 | HMH.PHAVTE ---
[facility] Pharmacy VTE Monitoring - Patient Demographics Admission date: 10/24/20 Report Date: 10/26/20 Time: 07:36 Allergies/Adverse Reactions: Patient Allergies No Known Allergies Allergy (Verified 10/18/20 13:42) Height: 1.63 m Weight: 117.934 kg Patient Problems: Current Active Problems DUB (dysfunctional uterine bleeding) (Acute) Previous section (Acute) Pelvic pain (Acute) Amenorrhea (Acute) Thickened endometrium (Acute) Morbid obesity with BMI of 45.0-49.9, adult (Acute) History of oophorectomy (Acute) - VTE Risk Labs: VTE Related Lab Results Hgb 11.9 g/dL (12.2-16.2) L 10/25/20 06:15 Hct 36.5 % (37.0-47.0) L 10/25/20 06:15 BUN 7 mg/dl (7-17) D 10/25/20 06:15 Creatinine 0.80 mg/dl (0.52-1.04) 10/25/20 06:15 Estimated Creat Clear 77 mL/min (50-200) 10/25/20 06:15 Was VTE Risk Assessment Performed: No VTE Score: 0 VTE Risk Level: Very Low Risk - Prophylaxis VTE Prophylaxis Ordered?: Yes Types of VTE Prophylaxis: IPCS Thigh High Location of Applied Device: Bilateral Lower Extremeties
[2020-10-26 08:00] VITALS: BP 130/82; PULSE 88; RESP 18; TEMP 36.7; O2SAT 99
--- NOTE | 2020-10-26 08:16 | PC.NURSE ---
DR. RAMIREZ AT BEDSIDE
--- NOTE | 2020-10-26 10:10 | PC.NURSE ---
PT OFFERED ASSISTANCE TO SHOWER, DECLINES AT THIS TIME
--- NOTE | 2020-10-26 10:25 | HMH.DCSUM ---
General - General Admission date:: 10/24/20 Discharge date: 10/26/20 HPI HPI: 45 yo with pelvic pain, amenorrhea, DUB Patient has history of excessive menstruation and DUB leading up to may 2019, followed by no menstrual periods in almost 1 year, with no medical or surgical treatments to explain amenorrhea No significant vasomotor symptoms but she assumed she was in menopause FSH 4.1 and pelvic ultrasound showed endometrial stripe measurement 9.7mm Uterus measured [id number] D&C Hysteroscopy was performed on 06/09/20 with benign pathology Following hysteroscopic evaluation, she has had periods of intermittent dub, most recently bleeding for 20 days and requiring medical management with provera She is concerned about increased risk for endometrial hyperplasia with BMI 47 and unexplained amenorrhea She has elected definitive surgical management with hysterectomy She also has continued pelvic pain and would like right ovary removed at time of hysterectomy (previous LSO) Scheduled for SOPHIE/RSO Hospital Course Hospital Course: s/p SOPHIE/RSO Postop course uneventful Ambulating and voiding without difficulty Tolerating regular diet Pain control sufficient Ready for discharge home on POD #2 Objective Vital signs: Temp Pulse Resp BP Pulse Ox 98.0 F 88 18 130/82 99 10/26/20 08:00 10/26/20 08:00 10/26/20 08:00 10/26/20 08:00 10/26/20 08:00 Narrative: CONSTITUTIONAL: no acute distress HEENT: mucous membranes moist PULMONARY: breathing unlabored without audible wheezes CV: no tachycardia or visible JVD; normal LE peripheral pulses ABD: soft, ND; appropriately tender but no rebound/guarding SKIN: incision well approximated with no drainage, erythema or induration EXT: no edema LEs NEURO: alert/oriented, no altered mental status PSYCH: appropriate mood and demeanor DS: Diagnosis - Discharge Diagnosis (1) DUB (dysfunctional uterine bleeding) Status: Acute (2) Pelvic pain Status: Acute (3) Amenorrhea Status: Acute (4) Thickened endometrium Status: Acute (5) Morbid obesity with BMI of 45.0-49.9, adult Status: Acute (6) Previous section Status: Acute (7) History of oophorectomy Status: Acute Problem details: Left (8) History of hysterectomy Status: Acute Discharge Plan - Patient Discharge Instructions ACTIVITY: Limited activity DIET: regular diet Additional Instructions: NO HEAVY LIFTING OR STRENUOUS ACTIVITY NO DRIVING FOR 2 WEEKS NOTHING IN VAGINA FOR [address] FOLLOW-UP WITH DR. RAMIREZ 11/07/20 AT 9:30 Patient Instructions: How to Care for a Surgical Wound, Hysterectomy -- Open Surgery, Preventing the Spread of Coronavirus Discharge Instructions - Follow up Plan Disposition: Home, Self-Care Condition at discharge:: Stable Home Medications: Home Medications Medication Instructions Recorded Confirmed Type Hydromorphone HCl [Dilaudid 2mg 2 mg PO Q4HP PRN #30 tablet 10/26/20 Rx tablet] Ibuprofen [Motrin 400mg 800 mg PO Q6HP PRN #30 tab 10/26/20 Rx tablet] Prescriptions/Medication Reconciliation: New Hydromorphone HCl [Dilaudid 2mg tablet] 2 mg PO Q4HP PRN #30 tablet PRN Reason: Moderate To Severe Pain Ibuprofen [Motrin 400mg tablet] 800 mg PO Q6HP PRN #30 tab PRN Reason: Mild Pain - Problem Reconciliation Problems Reviewed?: Yes
--- NOTE | 2020-10-26 12:23 | P.PN_ITS ---
[facility] Anesthesia Record Part II Discharge Time: 11:35 Destination: floor PACU nurse assessment reviewed?: Yes Patient Condition:: Good Anesthesia Complications:: None Swallowing reflex intact?: Yes Cyanosis?: No Blood Pressure: 136/76 Pulse Rate: 88 Temperature: 97.5 F Mental Status: Alert & Oriented Pain level:: 4 Nausea and/or vomitting:: None Intake, IV Amount: 1,500
[2020-10-26 12:24] VITALS: BP 136/76; PULSE 88; TEMP 36.4
== END 2020-10-26 11:45 | disposition home or self-care (01) | DRG 742 ==
LOC: OB 06:32
PROVIDERS: Admitting Provider Obstetrics & Gynecology; PCP Family Medicine; Visit Provider Obstetrics & Gynecology
PROC: 0UT90ZZ Resection of Uterus, Open Approach (ICD-10-PCS; CPT 58150; principal; 2020-10-24 08:00)
DX: D25.1 Intramural leiomyoma of uterus (principal); Z68.41 Body mass index [BMI] 40.0-44.9, adult; N91.2 Amenorrhea, unspecified; R10.2 Pelvic and perineal pain; R93.89 Abnormal findings on diagnostic imaging of other specified body structures; E66.01 Morbid (severe) obesity due to excess calories
CPT/HCPCS: 58150; 80048; 81001; 85014; 85018; 94761; 96374; G0283; J0131; J2405; J2710; U0003